=== PATIENT | female | born 1990 | race Caucasian/White ===

== ENCOUNTER 2016-09-02 15:50 | Emergency (ER) | payer MEDICAID ==
--- NOTE | 2016-09-02 16:00 | ED.PDOC ---
History of Present Illness - General Chief Complaint: ENT Problem Stated Complaint: sore throat Time Seen by Provider: 09/02/16 16:00 Source: patient, RN notes reviewed Exam Limitations: no limitations - History of Present Illness Initial Comments: Ralph Frias 26 y/o female stated she had nasal congestin 4 days ago followed by non productive cough 2 days later then had achy throat this morning which persisted.Also had cholecystectomy august 1411/2016 and pain dull ache umbilical area since surgery. Timing/Duration: gradual, this morning Severity: moderate EENT Location: throat Prearrival Treatment: no prearrival treatment Improving Factors: rest Worsening Factors: eating, other - coughing Associated Symptoms: nasal congestion/drainage, sore throat Allergies/Adverse Reactions: Allergies NO KNOWN ALLERGY Allergy (Verified 03/24/15 00:01) Home Medications: Ambulatory Orders Benzonatate Perles [Tessalon Perles] 200 mg PO TID #30 cap 09/02/16 Chlorpheniramine Maleate [Allergy] 12 mg PO BEDTIME #30 tab 09/02/16 Review of Systems - Review of Systems Constitutional: States: no symptoms reported EENTM: States: see HPI Respiratory: States: no symptoms reported Cardiology: States: no symptoms reported Gastrointestinal/Abdominal: States: see HPI Genitourinary: States: no symptoms reported Musculoskeletal: States: no symptoms reported Skin: States: no symptoms reported Neurological: States: no symptoms reported Endocrine: States: no symptoms reported Hematologic/Lymphatic: States: no symptoms reported Past Medical History (General) - Patient Medical History Hx Seizures: No Hx Stroke: No Hx Dementia: No Hx Asthma: Yes Hx of COPD: No Hx Cardiac Disorders: No Hx Congestive Heart Failure: No Hx Pacemaker: No Hx Hypertension: Yes Hx Thyroid Disease: Yes Hx Diabetes: No - borderline Hx Gastroesophageal Reflux: No Hx Renal Disease: No Hx Cancer: No Hx of HIV: No Hx Hepatitis C: No Hx MRSA: No Surgical History: cholecystectomy - Vaccination History Hx Tetanus, Diphtheria Vaccination: Yes Hx Influenza Vaccination: Yes Hx Pneumococcal Vaccination: No - Social History Hx Tobacco Use: Yes Hx Chewing Tobacco Use: No Hx Alcohol Use: No Hx Substance Use: No Hx Substance Use Treatment: No Hx Depression: No Hx Physical Abuse: No Hx Emotional Abuse: No Hx Suspected Abuse: No - Female History Patient is a Female of Child Bearing Age (10 -59 yrs old): Yes Hx Last Menstrual Period: 08/24/16 Patient : No Family Medical History - Family History Maternal Family History: No Known Living Status: Still Living Hx Family Hypertension: Yes - dad Hx Family Diabetes: Yes - parents Hx Family;Other: seizure-dad;gallstone -parents Father Living Status: Still Living Hx Family Hypertension: Yes Paternal Grandparents Living Status: Still Living Hx Family Congestive Heart Failure: Yes Hx Family Diabetes: Yes - type 1 Physical Exam - Physical Exam General Appearance: Alert, Comfortable, No apparent distress Eye Exam: bilateral normal Ear Exam: bilateral ear: auricle normal, canal normal, TM normal, TM red Nasal Exam: other - rhinorrhea and nasal congestion Throat Exam: other - pharyngeal erythema,aphtae like eruption base of tongue Neck: non-tender, full range of motion, supple Cardiovascular/Respiratory: regular rate, rhythm, no M/R/G, normal peripheral pulses, normal breath sounds Abdominal Exam: non-tender, no organomegaly Neurologic: no motor/sensory deficits, alert, oriented x 3 Skin Exam: normal color, warm/dry Progress - Results/Orders Results/Orders: Vital Signs - 8 hr 09/02/16 16:10 Temperature 98.6 F Pulse Rate [ 69 LEFT BRACHIAL] Respiratory 20 Rate Blood Pressure 120/84 [LEFT BRACHIAL] O2 Sat by Pulse 94 L Oximetry 09/02/16 16:01 STREP A SCREEN CULTURE Stat Laboratory Results Group A Strep DNA Negative (NEGATIVE) 09/02/16 16:01 - EKG/XRAY/CT XRAY: abdomen - no acute changes noted Departure - Departure Clinical Impression: Nasopharyngitis, Postoperative abdominal pain, Fever blister Time of Disposition: 17:28 Disposition: Discharge to Home or Self Care Condition: Good Referrals: Jose Traylor MD [Primary Care Provider] - 1-2 Weeks Prescriptions: Benzonatate Perles [Tessalon Perles] 200 mg PO TID #30 cap Chlorpheniramine Maleate [Allergy] 12 mg PO BEDTIME #30 tab Home Medications: Ambulatory Orders Benzonatate Perles [Tessalon Perles] 200 mg PO TID #30 cap 09/02/16 Chlorpheniramine Maleate [Allergy] 12 mg PO BEDTIME #30 tab 09/02/16 Additional Instructions: Drink extra fluids
[2016-09-02 16:33] VITALS: TEMP 98.6
--- NOTE | 2016-09-02 17:17 | RAD ---
PROCEDURE: Abdomen Series Clinical History: pain Indication: Same as above Comparison: None Technique: Two views of the abdomen and pelvis were done. In addition single frontal projection of the chest was done Findings: There is no gross evidence of free air in the abdomen or the pelvis . The small and large bowel gas pattern does not show any evidence of obstruction, ileus or bowel wall thickening. There is no visualization of radiopaque calculi in the outline of the urinary tract. There are no airspace infiltrates or pleural effusions. There are no pneumothoraces. The cardiac mediastinal silhouette is unremarkable There is prior cholecystectomy. There is mild constipation. Impression: Constipation. There are no acute findings in the chest Location of Interpretation: [id number] Electronically signed by: Cal Pineda MD 09/02/2016 5:17 PM CDT Workstation: [id number]
[2016-09-02 17:52] VITALS: BP 124/82; O2SAT 95
== END 2016-09-02 17:45 | disposition home or self-care (01) ==
LOC: ER 15:50
DX: J00 Acute nasopharyngitis [common cold] (principal); B00.1 Herpesviral vesicular dermatitis; G89.18 Other acute postprocedural pain; R10.9 Unspecified abdominal pain; I10 Essential (primary) hypertension; E07.9 Disorder of thyroid, unspecified; J45.909 Unspecified asthma, uncomplicated; Z87.891 Personal history of nicotine dependence

== ENCOUNTER 2016-11-13 13:50 | Emergency (ER) | payer MEDICAID, OTHER ==
[2016-11-13] MEDS ORDERED: POVIDONE IODINE 10 % 15 ML UD TOP ONE (14:48)
[2016-11-13] MEDS ORDERED: LIDOCAINE 1% 10 ML VIAL INJ ONE (14:48)
[2016-11-13] MEDS ORDERED: NEOMYCIN-BACITRACIN-POLYMYXIN 0.9 GM UD TOP ONE (14:58)
--- NOTE | 2016-11-13 15:04 | ED.PDOC ---
History of Present Illness - General Chief Complaint: Skin/Abrasion/Tear Stated Complaint: pain /redness left armpit Time Seen by Provider: 11/13/16 14:26 Source: patient Exam Limitations: no limitations - History of Present Illness Initial Comments: Venecia Frias 26 y/o female stated that noticed redness/pus/pain left armpit 3 days ago which got worse. Timing/Duration: other - 3 days ago Severity: moderate Location: extremities - armpit Improving Factors: nothing Worsening Factors: nothing Associated Symptoms: denies symptoms Allergies/Adverse Reactions: Allergies NO KNOWN ALLERGY Allergy (Verified 03/24/15 00:01) Home Medications: Ambulatory Orders Benzonatate Perles [Tessalon Perles] 200 mg PO TID #30 cap 09/02/16 Chlorpheniramine Maleate [Allergy] 12 mg PO BEDTIME #30 tab 09/02/16 Clindamycin HCl [Cleocin] 300 mg PO BID #20 cap 11/13/16 Review of Systems - Review of Systems Constitutional: States: no symptoms reported EENTM: States: no symptoms reported Respiratory: States: no symptoms reported Neurological: States: see HPI Past Medical History (General) - Patient Medical History Hx Seizures: No Hx Stroke: No Hx Dementia: No Hx Asthma: Yes Hx of COPD: No Hx Cardiac Disorders: No Hx Congestive Heart Failure: No Hx Pacemaker: No Hx Hypertension: Yes Hx Thyroid Disease: Yes Hx Diabetes: No - borderline Hx Gastroesophageal Reflux: No Hx Renal Disease: No Hx Cancer: No Hx of HIV: No Hx Hepatitis C: No Hx MRSA: No Surgical History: no surgical history - Vaccination History Hx Tetanus, Diphtheria Vaccination: Yes Hx Influenza Vaccination: Yes Hx Pneumococcal Vaccination: No - Social History Hx Tobacco Use: Yes Hx Chewing Tobacco Use: No Hx Alcohol Use: No Hx Substance Use: No Hx Substance Use Treatment: No Hx Depression: No Hx Physical Abuse: No Hx Emotional Abuse: No Hx Suspected Abuse: No - Female History Hx Last Menstrual Period: 08/24/16 Patient : No Family Medical History - Family History Maternal Family History: No Known Living Status: Still Living Hx Family Hypertension: Yes - dad Hx Family Diabetes: Yes - parents Hx Family;Other: seizure-dad;gallstone -parents Father Living Status: Still Living Hx Family Hypertension: Yes Paternal Grandparents Living Status: Still Living Hx Family Congestive Heart Failure: Yes Hx Family Diabetes: Yes - type 1 Physical Exam - Physical Exam General Appearance: Alert, Comfortable, No apparent distress Eyes, Ears, Nose, Throat Exam: PERRL/EOMI, normal ENT inspection Neck: non-tender, full range of motion Cardiovascular/Chest: normal peripheral pulses, regular rate, rhythm, no murmur Respiratory: chest non-tender, lungs clear Gastrointestinal/Abdominal: normal bowel sounds, non tender, soft Extremity: normal range of motion, non-tender, no calf tenderness Neurologic: alert, oriented x 3 Skin Problem Location: other - left armpit Skin Character: abscess Lymphatic: no adenopathy Procedures - Incision and Drainage #1 Site: cutaneous abscess left armpit Procedure and Prep: betadine prep, sterile drapes applied, sterile dressings applied, wound culture collected, pus drained - 0.2 cc Departure - Departure Clinical Impression: Cutaneous abscess of axilla Qualifiers: Laterality: left Qualified Code(s): L02.412 - Cutaneous abscess of left axilla Time of Disposition: 15:09 Disposition: Discharge to Home or Self Care Condition: Good Departure Forms: ED Discharge - Pt. Copy, Patient Portal Self Enrollment Instructions: DI for Incision and Drainage of a Skin Abscess, DI for Skin Abscess Referrals: Jose Traylor MD [Primary Care Provider] - 1-2 Weeks Prescriptions: Clindamycin HCl [Cleocin] 300 mg PO BID #20 cap Home Medications: Ambulatory Orders Benzonatate Perles [Tessalon Perles] 200 mg PO TID #30 cap 09/02/16 Chlorpheniramine Maleate [Allergy] 12 mg PO BEDTIME #30 tab 09/02/16 Clindamycin HCl [Cleocin] 300 mg PO BID #20 cap 11/13/16 Additional Instructions: ALEVE(otc) one tablet 3 x a day for pain as needed
[2016-11-13] MEDS ORDERED: WATER FOR INJ 10 ML VIAL INJ ONE (15:18)
[2016-11-13] MEDS: CLINDAMYCIN HCL CAP 150 MG CAP PO ONE (15:18)
[2016-11-13] MEDS: ceFAZolin SODIUM 1 GM VIAL IM ONE (15:18)
[2016-11-13 15:37] VITALS: BP 111/71; O2SAT 96
== END 2016-11-13 15:32 | disposition home or self-care (01) ==
LOC: ER 13:50
DX: L02.412 Cutaneous abscess of left axilla (principal); Z87.891 Personal history of nicotine dependence; I10 Essential (primary) hypertension; E07.9 Disorder of thyroid, unspecified
CPT/HCPCS: 87070; A4216; J0690

== ENCOUNTER 2016-11-29 14:10 | Emergency (ER) | payer OTHER ==
[2016-11-29 14:22] VITALS: BP 125/86; TEMP 98.6
--- NOTE | 2016-11-29 14:51 | ED.PDOC ---
History of Present Illness - General Chief Complaint: Abdominal Pain Stated Complaint: pelvic pain Time Seen by Provider: 11/29/16 14:23 Information Source: patient Exam Limitations: no limitations - History of Present Illness Initial Comments: Ralph Frias 26 y/o female stated she had intermittent sharp pelvic pain for the last 3 days and becoming more frequent and today radiated to her RLQ and felt nauseous.denies dysuria,diarrhea,had bm today,no vaginal discharge,no history of sti,one partner for the last 3 years.Had recent I & D of abscess armpit left last week and stating better. Abdominal Pain Onset Location: suprapubic Pain Radiation: RLQ Quality: sharpness Timing/Duration: other - 3 days Associated Symptoms: other - see hpi Review of Systems - Review of Systems Constitutional: States: no symptoms reported EENTM: States: no symptoms reported Respiratory: States: no symptoms reported Cardiology: States: no symptoms reported Gastrointestinal/Abdominal: States: see HPI Genitourinary: States: no symptoms reported Past Medical History (General) - Patient Medical History Hx Seizures: No Hx Stroke: No Hx Dementia: No Hx Asthma: Yes Hx of COPD: No Hx Cardiac Disorders: No Hx Congestive Heart Failure: No Hx Pacemaker: No Hx Hypertension: Yes Hx Thyroid Disease: Yes Hx Diabetes: No - borderline Hx Gastroesophageal Reflux: No Hx Renal Disease: No Hx Cancer: No Hx of HIV: No Hx Hepatitis C: No Hx MRSA: No Surgical History: no surgical history - Vaccination History Hx Tetanus, Diphtheria Vaccination: Yes Hx Influenza Vaccination: No Hx Pneumococcal Vaccination: No - Social History Hx Tobacco Use: Yes Hx Chewing Tobacco Use: No Hx Alcohol Use: No Hx Substance Use: No Hx Substance Use Treatment: No Hx Depression: Yes Hx Physical Abuse: No Hx Emotional Abuse: No Hx Suspected Abuse: No - Activities of Daily Living Hospice Agency (if applicable):: None - Female History Patient is a Female of Child Bearing Age (10 -59 yrs old): Yes Hx Last Menstrual Period: 08/24/16 Patient : No - unknown Family Medical History - Family History Maternal Family History: No Known Living Status: Still Living Hx Family Hypertension: Yes - dad Hx Family Diabetes: Yes - parents Hx Family;Other: seizure-dad;gallstone -parents Father Living Status: Still Living Hx Family Hypertension: Yes Paternal Grandparents Living Status: Still Living Hx Family Congestive Heart Failure: Yes Hx Family Diabetes: Yes - type 1 Physical Exam - Physical Exam General Appearance: Alert, Comfortable, No apparent distress Eyes, Ears, Nose, Throat Exam: PERRL/EOMI, normal ENT inspection, TMs normal, pharynx normal Neck: non-tender, full range of motion, supple Respiratory: chest non-tender, lungs clear, normal breath sounds Cardiovascular/Chest: normal peripheral pulses, regular rate, rhythm, no murmur Peripheral Pulses: No deficit Gastrointestinal/Abdominal: normal bowel sounds, soft, tenderness - tenderness lower abdominal area and RLQ no peritoneal signs Pelvic Exam: normal external exam, normal adnexa, no cerv. motion tender, no masses Back Exam: no CVA tenderness Extremity: non-tender, no calf tenderness Neurologic: alert, oriented x 3 Skin Exam: normal color, warm/dry Special Observations: Using mobile device Progress - Progress Progress: 11/29/16 15:31 Vital Signs - 8 hr 11/29/16 11/29/16 14:21 14:22 Temperature 98.6 F 98.6 F Pulse Rate [ 77 Left Radial] Pulse Rate [ 76 pulse ox] Respiratory 20 18 Rate Blood Pressure 125/86 [Left Arm] Blood Pressure 125/86 [Right Arm] O2 Sat by Pulse 95 95 Oximetry 11/29/16 16:54 Laboratory Tests 11/29/16 11/29/16 11/29/16 15:00 15:00 15:04 WBC 11.0 H RBC 4.81 Hgb 13.7 Hct 40.4 MCV 83.9 MCH 28.4 MCHC 33.9 RDW 12.9 Plt Count 215 MPV 9.5 Absolute Neuts (auto) 7.60 H Absolute Lymphs (auto) 2.50 Absolute Monos (auto) 0.60 Absolute Eos (auto) 0.30 Absolute Basos (auto) 0.10 Neutrophils % 69.6 Lymphocytes % 22.4 Monocytes % 5.0 Eosinophils % 2.5 Basophils % 0.5 Sodium Potassium Chloride Carbon Dioxide Anion Gap BUN Creatinine BUN/Creatinine Ratio Random Glucose Serum Osmolality Calcium Urine Color Yellow Urine Appearance Cloudy Urine pH 7.5 Ur Specific [place] 1.025 Urine Protein Negative Urine Glucose (UA) Negative Urine Ketones Negative Urine Blood Negative Urine Nitrite Negative Urine Bilirubin Negative Urine Urobilinogen 0.2 Ur Leukocyte Esterase Negative Urine RBC 0 Urine WBC 0 Ur Epithelial Cells 1-3 Amorphous Sediment 4+ Urine Bacteria 1+ Urine HCG, Qual Negative 11/29/16 15:04 WBC RBC Hgb Hct MCV MCH MCHC RDW Plt Count MPV Absolute Neuts (auto) Absolute Lymphs (auto) Absolute Monos (auto) Absolute Eos (auto) Absolute Basos (auto) Neutrophils % Lymphocytes % Monocytes % Eosinophils % Basophils % Sodium 139 Potassium 3.8 Chloride 106 Carbon Dioxide 25 Anion Gap 11.8 L BUN 11 Creatinine 0.50 L BUN/Creatinine Ratio 22.0 H Random Glucose 98 Serum Osmolality 276.9 Calcium 8.8 Urine Color Urine Appearance Urine pH Ur Specific [place] Urine Protein Urine Glucose (UA) Urine Ketones Urine Blood Urine Nitrite Urine Bilirubin Urine Urobilinogen Ur Leukocyte Esterase Urine RBC Urine WBC Ur Epithelial Cells Amorphous Sediment Urine Bacteria Urine HCG, Qual - EKG/XRAY/CT Xray Comments: pelvic sono-small fibroids uterine CT Ordered: Yes - abd pelvis-no acute abnormalities noted Departure - Departure Clinical Impression: Abdominal pain Qualifiers: Abdominal location: lower abdomen, unspecified Qualified Code(s): R10.30 - Lower abdominal pain, unspecified Time of Disposition: 17:54 Disposition: Discharge to Home or Self Care Condition: Good Departure Forms: ED Discharge - Pt. Copy, Patient Portal Self Enrollment Instructions: DI for Abdominal Pain-Adult Referrals: Jose Traylor MD [Primary Care Provider] - 1-2 Weeks Prescriptions: Metronidazole 500 mg PO BID #14 tab Tramadol HCl 100 mg PO TID PRN #30 tab PRN Reason: Pain Home Medications: Ambulatory Orders Escitalopram [Lexapro] 10 mg PO DAILY 11/29/16 Metronidazole 500 mg PO BID #14 tab 11/29/16 Tramadol HCl 100 mg PO TID PRN #30 tab 11/29/16
[2016-11-29] MEDS ORDERED: LACTATED RINGERS 1,000 ML IVS ONE (14:52)
--- NOTE | 2016-11-29 16:28 | US ---
EXAM DESCRIPTION: Pelvic,Non-OB CLINICAL HISTORY: 26 years Female pelvic pain COMPARISON: None. TECHNIQUE: Transvaginal duplex imaging performed to evaluate the pelvis. FINDINGS: The uterus measures 8.5 x 4.8 x 4.3 cm. Endometrial stripe 9 mm. Tiny anterior hypoechogenic area measuring 7 x 6 x 12 mm which may reflect small fibroid. Both ovaries appear normal in size without adnexal mass. There is normal bilateral ovarian blood flow. No free fluid. IMPRESSION: No evidence of acute process Small slightly hypoechoic area in the anterior uterine wall which may reflect small myometrial fibroid Electronically signed by: Juliette Whyte 11/29/2016 4:26 PM CDT
--- NOTE | 2016-11-29 17:37 | CT ---
EXAM DESCRIPTION: Abdomen/Pelvis w/Contrast CLINICAL HISTORY: 26 years Female pain COMPARISON: None. TECHNIQUE: Contiguous axial images obtained through the abdomen and pelvis following IV contrast. Reformatted images obtained. This exam was performed according to our department optimization program which includes automated exposure control, adjustment of the mA and/or kv according to patient size and/or use of iterative reconstruction technique. FINDINGS: The liver appears unremarkable. Spleen is mildly enlarged measuring 12.8 cm. Unremarkable pancreas. No adrenal masses. The kidneys appear unremarkable. No hydronephrosis. The gallbladder is surgically absent. No aneurysmal dilatation of the aorta. No bowel obstruction. The appendix is unremarkable. No significant free fluid noted. IMPRESSION: No acute abnormality is identified. Mild splenomegaly Electronically signed by: Juliette Whyte 11/29/2016 5:36 PM CDT
[2016-11-29] MEDS ORDERED: HYDROcodone 7.5MG/APAP 325MG 1 EA TAB PO ONE (17:52)
[2016-11-29] MEDS ORDERED: KETOROLAC TROMETHAMINE INJ 30 MG/ML VIAL IV ONE (17:52)
[2016-11-29 18:25] VITALS: O2SAT 94
== END 2016-11-29 18:26 | disposition home or self-care (01) ==
LOC: ER 14:10
DX: R10.30 Lower abdominal pain, unspecified (principal); I10 Essential (primary) hypertension; E07.9 Disorder of thyroid, unspecified; Z87.891 Personal history of nicotine dependence
CPT/HCPCS: 36415; 74177; 76856; 80048; 81001; 81025; 85025; 87210; J1885; J7120

== ENCOUNTER → 2017-05-28 | Outpatient (CLI) | payer OTHER ==
--- NOTE | 2017-05-29 08:19 | RAD ---
EXAM DESCRIPTION: Lumbar Spine 3 Views CLINICAL HISTORY: LOW BACK PAIN COMPARISON: None Available. TECHNIQUE: AP/lateral/coned-down lateral FINDINGS: There is anatomic alignment of the vertebral bodies and lumbar spine. Frontal view shows intact pedicles and transverse processes. Sacrum appears intact with normal SI joints. Lateral view shows no vertebral compressions. Disc height is well-preserved. Normal bony mineralization. No destructive lesion. IMPRESSION: No diagnostic abnormality. Electronically signed by: Yohan Queen MD 05/29/2017 8:18 AM [facility]
--- NOTE | 2017-05-29 08:21 | RAD ---
EXAM DESCRIPTION: Sacroiliac Joints CLINICAL HISTORY: 27 years Female, LOW BACK PAIN COMPARISON: None. TECHNIQUE: Bilateral oblique views of the sacroiliac joints. FINDINGS: Right SI joint is normal. Minimal sclerosis along the inferior left SI joint. Sclerotic changes in the region of the posterior elements on the left at L4-5 and L5-S1 may be facet degenerative changes. No definite spondylolysis. IMPRESSION: Mild sclerosis of left lower lumbar facets and inferior left SI joint may be early degenerative changes. Electronically signed by: Yohan Queen MD 05/29/2017 8:20 AM [facility]
== END ==
LOC: LAB.O 15:12
DX: M54.5 Low back pain (principal); R63.5 Abnormal weight gain

== ENCOUNTER 2018-11-14 13:55 | Emergency (ER) | payer OTHER ==
[2018-11-14 14:15] VITALS: TEMP 98.7; O2SAT 99
--- NOTE | 2018-11-14 14:35 | ED.PDOC ---
History of Present Illness - General Chief Complaint: ENT Problem Stated Complaint: left ear pain Time Seen by Provider: 11/14/18 14:24 Source: patient Exam Limitations: no limitations - History of Present Illness Initial Comments: Patient presents with left ear pain for four days. It has been insidiously getting worse. Today she woke up and there was a discharge on her pillow. She is not sure what color it was. The pain is throbbing with radiation to the left cheek. Constant. Worse with palpation of the auricle, better with rest. She has chronic environmental allergies and has had clear rhinorrhea. There is a mild decrease in hearing in the left ear. She says she has had this happen on 4 other occasions this year. No fevers. No other complaints. Timing/Duration: other - 4 days Severity: moderate Improving Factors: rest Worsening Factors: movement Associated Symptoms: other - as in HPI Allergies/Adverse Reactions: Allergies NO KNOWN ALLERGY Allergy (Verified 11/29/16 14:26) Home Medications: Ambulatory Orders Escitalopram [Lexapro] 10 mg PO DAILY 11/29/16 Metronidazole 500 mg PO BID #14 tab 11/29/16 Tramadol HCl 100 mg PO TID PRN #30 tab 11/29/16 [id number] (Otic) [Neomycin/Polymyxin/Hydroc 3.5-83071-6] 4 drop LEFT_EAR QID 7 Days #10 ml 11/14/18 Review of Systems - Review of Systems Constitutional: States: no symptoms reported EENTM: States: see HPI Respiratory: States: no symptoms reported Cardiology: States: no symptoms reported Gastrointestinal/Abdominal: States: no symptoms reported Genitourinary: States: no symptoms reported Musculoskeletal: States: no symptoms reported Skin: States: no symptoms reported Neurological: States: no symptoms reported Endocrine: States: no symptoms reported Hematologic/Lymphatic: States: no symptoms reported Past Medical History (General) - Patient Medical History Hx Seizures: No Hx Stroke: No Hx Dementia: No Hx Asthma: Yes Hx of COPD: No Hx Cardiac Disorders: No Hx Congestive Heart Failure: No Hx Pacemaker: No Hx Hypertension: Yes Hx Thyroid Disease: Yes Hx Diabetes: No - borderline Hx Gastroesophageal Reflux: No Hx Renal Disease: No Hx Cancer: No Hx of HIV: No Hx Hepatitis C: No Hx MRSA: No - Vaccination History Hx Tetanus, Diphtheria Vaccination: Yes Hx Influenza Vaccination: No Hx Pneumococcal Vaccination: No - Social History Hx Tobacco Use: Yes Hx Chewing Tobacco Use: No Hx Alcohol Use: No Hx Substance Use: No Hx Substance Use Treatment: No Hx Depression: Yes Hx Physical Abuse: No Hx Emotional Abuse: No Hx Suspected Abuse: No - Female History Hx Last Menstrual Period: 08/24/16 Patient : No - unknown Expected Date of Delivery:: 02/25/14 Family Medical History - Family History Maternal Family History: No Known Living Status: Still Living Hx Family Hypertension: Yes - dad Hx Family Diabetes: Yes - parents Hx Family;Other: seizure-dad;gallstone -parents Father Living Status: Still Living Hx Family Hypertension: Yes Paternal Grandparents Living Status: Still Living Hx Family Congestive Heart Failure: Yes Hx Family Diabetes: Yes - type 1 Physical Exam - Physical Exam General Appearance: Alert, Obvious distress - mild distress Eye Exam: bilateral normal Ears, Nose, Throat: other - right TM is clear, malleus visible. Left is clear with malleus visible. Non-bulging. Left external ear canal has erythma on the inferior aspect with a small amount of green/brown discharge. There is no cerumen impaction. OP clear. No nasal exudates. No LAD. 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 Patient was given 4 gtt of Corticosporin and Toradol 30 mg IM x one. Sent with RX for Corticosporin. Care instructions given. E.R. warnings given. Questions were elicited and answered. Patient voiced understanding and agreement with the plan. Departure - Departure Clinical Impression: Otitis externa Disposition: Discharge to Home or Self Care Condition: Good Departure Forms: ED Discharge - Pt. Copy, Patient Portal Self Enrollment Instructions: DI for Otitis Externa Diet: resume usual diet Activity: increase activity as tolerated Referrals: Jose Traylor MD [Primary Care Provider] - 1-2 Weeks Prescriptions: [id number] (Otic) [Neomycin/Polymyxin/Hydroc 3.5-88634-7] 4 drop LEFT_EAR QID 7 Days #10 ml Home Medications: Ambulatory Orders Escitalopram [Lexapro] 10 mg PO DAILY 11/29/16 Metronidazole 500 mg PO BID #14 tab 11/29/16 Tramadol HCl 100 mg PO TID PRN #30 tab 11/29/16 [id number] (Otic) [Neomycin/Polymyxin/Hydroc 3.5-91361-4] 4 drop LEFT_EAR QID 7 Days #10 ml 11/14/18 Additional Instructions: Use ear drops in left ear as prescribed. Ibuprofen as directed on the bottle for pain. Return to the E.R. or your regular doctor if pain has not resolved in 5 to 7 days or for temperature above 100.3.
[2018-11-14] MEDS: NEO/POLY/HC OTIC SUSP 10 ML BTTL RIGHT_EAR ONE (14:50)
[2018-11-14] MEDS: KETOROLAC TROMETHAMINE INJ 30 MG/ML VIAL IM ONE (15:41)
[2018-11-14 16:37] VITALS: BP 137/84
== END 2018-11-14 16:32 | disposition home or self-care (01) ==
LOC: ER 13:55
DX: H60.92 Unspecified otitis externa, left ear (principal); F32.9 Major depressive disorder, single episode, unspecified; Z87.891 Personal history of nicotine dependence; E07.9 Disorder of thyroid, unspecified; I10 Essential (primary) hypertension; J45.909 Unspecified asthma, uncomplicated; Z79.899 Other long term (current) drug therapy
CPT/HCPCS: 81001; 81025; J1885

== ENCOUNTER 2018-11-15 12:45 | Emergency (ER) | payer OTHER ==
[2018-11-15 13:03] VITALS: O2SAT 98
[2018-11-15] MEDS ORDERED: TETRACAINE HCL 0.5% OPHTH SOL 1 DROP ONE (13:03)
--- NOTE | 2018-11-15 13:19 | ED.PDOC ---
History of Present Illness - General Chief Complaint: ENT Problem Stated Complaint: L ear pain Time Seen by Provider: 11/15/18 12:52 Source: patient Exam Limitations: no limitations - History of Present Illness Initial Comments: the patient is a 28-year-old female presenting to the emergency room for the second time secondary to her left otitis external. She is reporting significant pain and essentially the ear canal is well closed at this point. Due to this she feels like she is not getting any medicine in the canal. For this reason it has been determined that the patient will need an ear wick. Risk and benefits have been explained. Tetracaine was used to reduce pain in the ear wick was placed.she does have decreased hearing in that ear today. The ear canal is ob viously almost swell-closed. Drainage is clear. Timing/Duration: other - 5 days Severity: severe Improving Factors: nothing Worsening Factors: nothing Associated Symptoms: denies symptoms Allergies/Adverse Reactions: Allergies NO KNOWN ALLERGY Allergy (Verified 11/15/18 13:04) Home Medications: Ambulatory Orders Amoxicillin & Pot Clavulanate [Augmentin Tab] 875 mg PO BID #10 tab 11/15/18 Tramadol HCl 50 mg PO Q8HR PRN #10 tab 11/15/18 Review of Systems - Review of Systems Constitutional: States: no symptoms reported EENTM: States: see HPI Respiratory: States: no symptoms reported Cardiology: States: no symptoms reported Gastrointestinal/Abdominal: States: no symptoms reported Genitourinary: States: no symptoms reported Musculoskeletal: States: no symptoms reported Skin: States: no symptoms reported Neurological: States: no symptoms reported Endocrine: States: no symptoms reported All other Systems: No Change from Baseline Past Medical History (General) - Patient Medical History Hx Seizures: No Hx Stroke: No Hx Dementia: No Hx Asthma: Yes Hx of COPD: No Hx Cardiac Disorders: No Hx Congestive Heart Failure: No Hx Pacemaker: No Hx Hypertension: Yes Hx Thyroid Disease: Yes Hx Diabetes: No - borderline Hx Gastroesophageal Reflux: No Hx Renal Disease: No Hx Cancer: No Hx of HIV: No Hx Hepatitis C: No Hx MRSA: No Surgical History: cholecystectomy, other - Vaccination History Hx Tetanus, Diphtheria Vaccination: No Hx Influenza Vaccination: No Hx Pneumococcal Vaccination: No - Social History Hx Tobacco Use: Yes Hx Chewing Tobacco Use: No Hx Alcohol Use: Yes Hx Substance Use: No Hx Substance Use Treatment: No Hx Depression: No Hx Physical Abuse: No Hx Emotional Abuse: No Hx Suspected Abuse: No - Female History Patient is a Female of Child Bearing Age (10 -59 yrs old): Yes Hx Last Menstrual Period: 08/24/16 Patient : No - Tested yesterday Expected Date of Delivery:: 02/25/14 Family Medical History - Family History Maternal Family History: No Known Living Status: Still Living Hx Family Hypertension: Yes - dad Hx Family Diabetes: Yes - parents Hx Family;Other: seizure-dad;gallstone -parents Father Living Status: Still Living Hx Family Hypertension: Yes Paternal Grandparents Living Status: Still Living Hx Family Congestive Heart Failure: Yes Hx Family Diabetes: Yes - type 1 Physical Exam - Physical Exam General Appearance: Alert, No apparent distress Eye Exam: bilateral normal Ears, Nose, Throat: normal pharynx, other - see history of present illness Neck: full range of motion, supple Respiratory: no respiratory distress, no accessory muscle use Cardiovascular/Chest: normal peripheral pulses, no edema Peripheral Pulses: radial,right: 2+, radial,left: 2+ Gastrointestinal/Abdominal: non tender, soft Rectal Exam: deferred Extremity: normal range of motion, no pedal edema, normal capillary refill Neurologic: hot room attendant II-XII nml as tested, alert, normal mood/affect, oriented x 3 Skin Exam: normal color Comments: Vital Signs - 24 hr 11/15/18 12:50 Temperature 99.5 F Pulse Rate [L 103 H finger] Respiratory 16 Rate Blood Pressure 138/93 [R brachial] O2 Sat by Pulse 98 Oximetry Progress - Progress Progress: 11/15/18 13:20 the patient is a 28-year-old female presenting to emergency room secondary to worsening swelling and pain due to her left otitis externa. An ear wick was placed. This will allow for better entry of her Cortisporin eardrops into the ear canal. In addition I'm going to place her on Augmentin for the next 5 days to help reduce cellulitis as well. She did receive 1 dose of prednisone and 1 dose of Toradol here. I'll also write her for a couple of days of tramadol. She does need to continue to use Motrin. ER warnings were given. Ear wick can come out in 3 or 4 days. Departure - Departure Clinical Impression: Otitis externa Qualifiers: Otitis externa type: diffuse Chronicity: acute Laterality: left Qualified Code(s): H60.312 - Diffuse otitis externa, left ear Disposition: Discharge to Home or Self Care Condition: Fair Departure Forms: ED Discharge - Pt. Copy, Patient Portal Self Enrollment Diet: regular diet Activity: increase activity as tolerated Referrals: Jose Traylor MD [Primary Care Provider] - 1-2 Weeks Prescriptions: Tramadol HCl 50 mg PO Q8HR PRN #10 tab PRN Reason: Moderate Pain Amoxicillin & Pot Clavulanate [Augmentin Tab] 875 mg PO BID #10 tab Home Medications: Ambulatory Orders Amoxicillin & Pot Clavulanate [Augmentin Tab] 875 mg PO BID #10 tab 11/15/18 Tramadol HCl 50 mg PO Q8HR PRN #10 tab 11/15/18 Additional Instructions: the patient is a 28-year-old female presenting to emergency room secondary to worsening swelling and pain due to her left otitis externa. An ear wick was placed. This will allow for better entry of her Cortisporin eardrops into the ear canal. In addition I'm going to place her on Augmentin for the next 5 days to help reduce cellulitis as well. She did receive 1 dose of prednisone and 1 dose of Toradol here. I'll also write her for a couple of days of tramadol. Sh ariel does need to continue to use Motrin. ER warnings were given. Ear wick can come out in 3 or 4 days.
[2018-11-15] MEDS: KETOROLAC TROMETHAMINE INJ 30 MG/ML VIAL IM ONE (13:28)
[2018-11-15] MEDS: predniSONE 20 MG TAB PO ONE (13:28)
[2018-11-15 13:42] VITALS: BP 132/97; TEMP 99.8
== END 2018-11-15 13:42 | disposition home or self-care (01) ==
LOC: ER 12:45
DX: H60.312 Diffuse otitis externa, left ear (principal); J45.909 Unspecified asthma, uncomplicated; I10 Essential (primary) hypertension; E07.9 Disorder of thyroid, unspecified; R73.03 Prediabetes; Z87.891 Personal history of nicotine dependence
CPT/HCPCS: J1885; J7512